=== PATIENT | male | born 1960 | race Caucasian/White ===

== ENCOUNTER → 2017-02-08 | Outpatient (CLI) | payer BC ==
[~2017-02-08] MED LIST: HYDROCODONE-AP1 EA11 PO; HYDROCODONE-AP1 EAC6 PO; IBUPROFEN 200200 M1 PO
== END ==
LOC: CAT 10:35
DX: N20.0 Calculus of kidney (principal)

== ENCOUNTER → 2018-02-16 | Outpatient (CLI) | payer BC ==
[~2018-02-16] MED LIST changes: +ALEVE220 MG PO; +FLOMAX0.4 MG PO; +GLUCOSAMINE HC500 MG PO; +OMEPRAZOLE40 MG PO; +SYNTHROID50 MCG PO
== END ==
LOC: RAD 09:56
DX: M16.11 Unilateral primary osteoarthritis, right hip (principal)